=== PATIENT | male | born 1970 | race Caucasian/White ===

== ENCOUNTER 2024-04-04 06:06 | Day surgery (SDC) | payer OTHER, SELFPAY ==
[2024-03-27 08:40] VITALS: BMI 21.5
[2024-03-27 10:44] LABS: Hematocrit 39.6 % (39.0-52.0); Hemoglobin 13.4 g/dL (13.0-18.0); Mean Corp Hgb Conc. 33.8 g/dL (33.0-37.0); Mean Corpuscular Hgb 31.8 pg (27.0-31.0); Mean Corpuscular Volume 93.8 fL (80.0-94.0); Platelet Count 246 10^3/uL (130-400); Red Blood Cell Count 4.22 10^6/uL (4.70-6.10); Red Cell Dist. Width 13.5 % (11.5-14.5); White Blood Cell Count 11.6 10^3/uL (4.8-10.8)
[2024-03-27 10:53] LABS: Blood Urea Nitrogen 12 mg/dl (9-20); Calcium 8.3 mg/dl (8.4-10.2); Carbon Dioxide 31 mmol/L (22-30); Chloride 99 mmol/L (98-107); Estimated Creatinine Clearance 89 ml/min; Glucose 81 mg/dl (70-99); Potassium 4.7 mmol/L (3.5-5.1); Sodium 139 mmol/L (135-145); eGFR > 60.00
[2024-04-04] VITALS (9 sets, daily range): BP systolic 98–141; BP diastolic 61–78; BMI 21.5
[2024-04-04] MEDS: TYLENOL 1000 MG PO (06:15)
[2024-04-04] MEDS: NORMOSOL-R/PLASMALYTE-A 1000 IV (06:20)
[2024-04-04] MEDS: DILAUDID 0.5 MG IV (09:52)
[2024-04-04] MEDS: ROXICODONE 5 MG PO (10:45)
== END 2024-04-04 10:55 | disposition home or self-care (01) ==
LOC: SDS 06:06
PROVIDERS: ATTENDING PHYSICIAN Surgery; FAMILY PHYSICIAN Student in an Organized Health Care Education/Training Program
DX: K40.20 Bilateral inguinal hernia, without obstruction or gangrene, not specified as recurrent (principal)
CPT/HCPCS: 49650; 36415; 80048; 85027; 93005; C1781